=== PATIENT | female | born 1980 | race Caucasian/White ===

== ENCOUNTER → 2016-12-31 | Day surgery (SDC) | payer BC ==
[~2016-12-31] MED LIST: MTR600X PO; ONDA8TAB6 PO; OXYC-57 PO; PRENTAB26 PO; ZNTT/150 PO
--- NOTE | 2016-12-31 16:19 | Anesthesiology Progress Note ---
Anesthesia Progress Note Date of Service Dec 31, 2016. Progress Notes Pt seen in PAT for Exam and Advise: OB visit. Pt's EDC: 01/31/17. First . PMH significant for: scoliosis, hypothyroid (found during ; pt refusing to take Synthroid per OB notes), hyperemesis gravidarum (on Zofran) , GERD (on Zantac). Pt states has worn a back brace previously for scoliosis. No hx of surgical intervention. Pt here to discuss options for pain control with delivery. Options discussed including IV medications and epidural. Pt does have fairly significant scoliosis. D/w pt that epidural may be more difficult to place; possibly to use US guidance. Pt states she does have a print-out of spine imaging, but she is in the process of moving so she is unable to locate the image at this time. Advised her to bring if she is able to find.
== END | disposition home or self-care (01) ==
LOC: C.ACU 09:48
PROVIDERS: ATTEND Obstetrics & Gynecology
DX: M41.20 Other idiopathic scoliosis, site unspecified (principal)

== ENCOUNTER 2017-01-31 02:56 | Inpatient (IN) | payer BC ==
[~2017-01-31] VITALS: Ht 167.6 cm; Wt 64.5 kg
[2017-02-06] MEDS ORDERED: ZNTT/150 PO (07:38)
[2017-02-06] MEDS ORDERED: ONDA8TAB6 PO (07:38)
[2017-02-06] MEDS ORDERED: PRENTAB26 PO (07:38)
[2017-02-06 07:40] VITALS: Ht 167.6 cm; Wt 64.5 kg
[2017-02-06] MEDS ORDERED: DINOPROSTONE 10 MG INSERT PV ONE (08:30)
[2017-02-06 09:08] LABS: HEMATOCRIT 35.1 % (37-47); MEAN CELL VOLUME 86.9 fL (80-100); MEAN CORPUSCULAR HEMOGLOBIN 28.5 pg (25-34); MEAN CORPUSCULAR HGB CONC 32.8 g/dl (32-36); MEAN PLATELET VOLUME 9.3 fL (7.4-10.4); PLATELET COUNT 214 K/uL (130-400); RED BLOOD COUNT 4.04 M/uL (4.2-5.4); WHITE BLOOD COUNT 11.09 K/uL (4.8-10.8)
[2017-02-06] MEDS ORDERED: ACETAMINOPHEN 500 MG TAB PO STA (17:32)
--- NOTE | 2017-02-06 18:49 | HISTORY & PHYSICAL EXAMINATION ---
DATE OF ADMISSION: 02/06/2017 HISTORY OF PRESENT ILLNESS: The patient is a 36-year-old G1, P0, due date 02/01/2017, making her 40 weeks and 5 days today who is here for induction of labor for postdates. The patient's has been unremarkable. She was via IVF and was seen by maternal medicine because of advanced maternal age. On arrival to labor and delivery, she had no shortness of breath, no chills, no fever. heart rate is category 1. COURSE: Unremarkable. LABS: Blood type A positive, antibody negative, rubella immune, GBS negative, RPR nonreactive. PAST MEDICAL HISTORY: 1. History of migraines. 2. History of scoliosis. 3. History of hypothyroidism. PAST SURGICAL HISTORY: The patient has had laparoscopy. SOCIAL HISTORY: The patient is . Denies drug, tobacco or alcohol use. ALLERGIES: No known drug allergies. MEDICATIONS: The patient was on Zantac, vitamins and iron supplement. PHYSICAL EXAMINATION: GENERAL: Well-developed, well-nourished white female in no acute distress. HEART: S1, S2, regular rhythm and rate. LUNGS: Clear to auscultation bilaterally. ABDOMEN: Nontender, Gravid. Bedside ultrasound shows cephalic presentation. PELVIC: The patient was fingertip, 50% effaced and minus 3 on admission. EXTREMITIES: No cyanosis, clubbing or edema. ASSESSMENT AND PLAN: A 36-year-old G1, P0 at 40 weeks and 5 days, here for labor induction for postdates. The patient is admitted and will start induction of labor.
[2017-02-06] MEDS ORDERED: ONDANSETRON 8 MG TAB PO PRN (19:45)
[2017-02-06] MEDS ORDERED: BUTORPHANOL TARTRATE 1 MG/ML VIAL IV STA (22:41)
[2017-02-06] MEDS ORDERED: LACTATED RINGER'S 1000ML 500 ML IV PRN (23:50)
[2017-02-07] MEDS ORDERED: OXYTOCIN 30 UNITS/500ML NSS IV PRN
[2017-02-07] MEDS: LACTATED RINGER'S 1000ML 1,000 ML IV SCH ×3 (01:42→10:51)
[2017-02-07] MEDS ORDERED: EpHEDrine SULFATE INJ 50 MG/ML AMP ONE ×2 (01:53→20:36)
[2017-02-07] MEDS ORDERED: FENTANYL CITRATE INJ 50 MCG/1 ML 2 ML VIAL ONE ×3 (01:53→08:38)
[2017-02-07] MEDS ORDERED: BUPIVACAINE 0.25% 30 ML VIAL ONE ×2 (01:53→08:36)
[2017-02-07] MEDS ORDERED: FENTANYL 2MCG/ML ROPIV 1.25MG/ML 100ML BAG EPI ONE (01:54)
[2017-02-07] MEDS ORDERED: LACTATED RINGER'S 1000ML 500 ML IV PRN ×3 (03:28→21:30)
[2017-02-07] MEDS ORDERED: NALOXONE HCL INJ 1 MG in SODIUM CHLORIDE 0.9% 1000ML 1,000 ML IV PRN ×3 (03:28→21:30)
[2017-02-07] MEDS ORDERED: ONDANSETRON INJ 2 MG/ML 2 ML VIAL IV PRN (03:30)
[2017-02-07] MEDS ORDERED: FENTANYL 2MCG/ML ROPIV 1.25MG/ML 100ML BAG EPI PRN (03:30)
[2017-02-07] MEDS ORDERED: DiphenhydrAMINE HCL 50 MG/ML VIAL IV PRN ×3 (03:30→21:30)
[2017-02-07] MEDS ORDERED: NALOXONE HCL INJ 0.4 MG/1 ML VIAL/CARP IV PRN ×2 (03:30→09:45)
[2017-02-07] MEDS ORDERED: NALBUPHINE HCL INJ 10 MG/ML AMP IV PRN ×3 (03:30→21:30)
[2017-02-07] MEDS: EpHEDrine SULFATE INJ 50 MG/ML AMP IV PRN ×2 (09:14→09:21)
[2017-02-07] MEDS ORDERED: EpHEDrine SULFATE INJ 50 MG/ML AMP IV PRN ×2 (09:45→21:30)
[2017-02-07] MEDS: FENTANYL 2MCG/ML ROPIV 1.25MG/ML 100ML BAG EPI PRN ×3 (10:53→18:56)
[2017-02-07] MEDS ORDERED: D5W AND LACTATED RINGERS 1,000 ML IV SCH ×2 (11:15→21:24)
[2017-02-07] MEDS ORDERED: CEFAZOLIN IV 1,000 MG in DEXTROSE 5% 50ML 50 ML IV SCH (19:00)
[2017-02-07] MEDS ORDERED: LACTATED RINGER'S 1000ML 1,000 ML IV SCH (19:20)
[2017-02-07] MEDS ORDERED: CEFAZOLIN IV 2,000 MG in DEXTROSE 5% 50ML 50 ML IV ONE (19:28)
[2017-02-07] MEDS ORDERED: CITRIC ACID/SODIUM CITRATE 15 ML UDC PO ONE (19:30)
[2017-02-07 19:45] LABS: HEMATOCRIT 32.7 % (37-47); MEAN CELL VOLUME 85.8 fL (80-100); MEAN CORPUSCULAR HEMOGLOBIN 28.9 pg (25-34); MEAN CORPUSCULAR HGB CONC 33.6 g/dl (32-36); MEAN PLATELET VOLUME 9.5 fL (7.4-10.4); PLATELET COUNT 199 K/uL (130-400); RED BLOOD COUNT 3.81 M/uL (4.2-5.4); WHITE BLOOD COUNT 16.04 K/uL (4.8-10.8)
[2017-02-07] MEDS ORDERED: OXYTOCIN INJ 10 UNITS/ML VIAL ONE ×4 (20:00→20:50)
[2017-02-07] MEDS ORDERED: MoRPHine SULFATE PF 1 MG/ML 10 ML AMP/VIAL ONE (20:01)
[2017-02-07] MEDS ORDERED: ONDANSETRON INJ 2 MG/ML 2 ML VIAL ONE (20:01)
[2017-02-07] MEDS ORDERED: MIDAZOLAM HCL 1 MG/ML 2ML VIAL ONE (20:01)
[2017-02-07 20:51] LABS: COMPLETE YES; LYMPH ABS # 0.98 K/uL (1.2-3.4); LYMPHOCYTE % 6.1 %; META ABS # 0.14 K/uL (0-0); METAMYELOCYTE % 0.9 %; MYELOCYTE % 0.9 %; NEUTROPHILS % 83.4 %
[2017-02-07] MEDS ORDERED: NALOXONE HCL INJ 0.08 MG in SYRINGE 1.8 ML IV PRN (21:30)
[2017-02-07] MEDS ORDERED: MoRPHine SULFATE 2 MG/ML CARP IV PRN (21:30)
[2017-02-07] MEDS ORDERED: SENNA 8.6 MG TAB PO PRN (21:30)
[2017-02-07] MEDS ORDERED: KETOROLAC TROMETHAMINE 30 MG/ML VIAL IV. PRN (21:30)
[2017-02-07] MEDS ORDERED: MAGNESIUM HYDROXIDE SUSP 30 ML UDC PO PRN (21:30)
[2017-02-07] MEDS ORDERED: MEASLES, MUMPS & RUBELLA VIRUS VIAL SQ. ONE (21:30)
[2017-02-07] MEDS ORDERED: MoRPHine SULFATE PF 1 MG/ML 10 ML AMP/VIAL EPI PRN (21:30)
[2017-02-07] MEDS ORDERED: BENZOCAINE 20% AER SPR 82.5 GM CAN EXT PRN (21:30)
[2017-02-07] MEDS ORDERED: NO NARCOTICS OR SEDATIVES SCH (21:30)
[2017-02-07] MEDS ORDERED: SUPERCREAM 0.870 % 15GM JAR EXT PRN (21:30)
[2017-02-07] MEDS ORDERED: LANOLIN OINT EXT PRN ×2 (21:30)
[2017-02-07] MEDS ORDERED: HYDROCORTISONE ACETATE 25 MG SUPP PR PRN (21:30)
[2017-02-07] MEDS ORDERED: SODIUM CHLORIDE 0.9% 1000ML 1,000 ML IV PRN (21:30)
[2017-02-07] MEDS ORDERED: DIPHTHERIA/TETANUS/PERTUSSIS 0.5 ML SYR/VIAL IM. ONE (21:30)
[2017-02-07] MEDS ORDERED: NALOXONE HCL 0.4 MG/1 ML VIAL/CARP IV PRN (21:30)
--- NOTE | 2017-02-07 21:30 | Anesthesiology Progress Note ---
Anesthesia Post Op Note Date & Time Feb 07, 2017 at 21:30 Vital Signs Pain Intensity: 5.0 Notes Mental Status: alert / awake / arousable, participated in evaluation Pt Amnestic to Procedure: Yes Nausea / Vomiting: adequately controlled Pain: adequately controlled Airway Patency, RR, SpO2: stable & adequate BP & HR: stable & adequate Hydration State: stable & adequate Anesthetic Complications: no major complications apparent
--- NOTE | 2017-02-07 21:36 | [facility] Post Operative Brief Note ---
Immediate Operative Summary Operative Date Feb 07, 2017. Pre-Operative Diagnosis IUP; Brow Presentation; Failed induction Post-Operative Diagnosis Same Procedure(s) Performed Primary caesarean section Delivery of live female child at 2036 Lower uterine transverse incision, lysis of filmy adhesions and repair of bilateral broad ligaments Surgeon Dr. Almeida Director Inbound Sales Surgeon(s) Dr. Velasco Estimated Blood Loss 500cc Findings Baby 's neck hyperflexed, brow presentation, Apgars 9/9, female Fluids (cc crystalloids) 1000 ml lr Specimens Cord blood Placenta-exam Drains 400 cc urine Anesthesia Spinal Complication(s) None Disposition L&D
[2017-02-07] MEDS: OXYTOCIN INJ 20 UNITS in D5W AND LACTATED RINGERS 1,000 ML IV SCH (22:54)
[2017-02-08] VITALS (15 sets, daily range): BP systolic 94–118; BP diastolic 43–73; PULSE 79–98; TEMP 36.6–37.6; O2SAT 93–99
[2017-02-08] MEDS: ONDANSETRON INJ 2 MG/ML 2 ML VIAL IV PRN ×2 (00:54→07:20)
[2017-02-08 04:09] LABS: URINE APPEARANCE CLEAR (CLEAR); URINE COLOR DK YELLOW; URINE NITRITE NEG (NEG); URINE PH 5.5 (4.5-7.5); URINE SPECIFIC GRAVITY 1.015 (1.000-1.030); UROBILINOGEN POS (NEG); ZZURINE CULT IF INDIC CATH YES
[2017-02-08 04:20] LABS: MANUAL MICROSCOPIC REQUIRED? NO; REVIEW REQ? NO; URINE BILIRUBIN NEG (NEG)
--- NOTE | 2017-02-08 04:37 | OPERATIVE REPORT ---
DATE OF OPERATION: 02/07/2017 PREOPERATIVE DIAGNOSIS: The patient is a 36-year-old G1, P0 at 40 weeks and 6 days of gestation, failed induction of labor, persistent brow presentation, arrest of dilatation and prolonged spontaneous rupture of membranes. POSTOPERATIVE DIAGNOSIS: Same. PROCEDURE: Primary low transverse with Pfannenstiel skin incision, lysis of filmy adhesions and repair of broad ligament. SURGEON: Dr. Mckeon. DOCTOR OF NURSE ANESTHESIA: Dr. Velasco. ESTIMATED BLOOD LOSS: 500. FLUIDS: 1000 mL of lactated Ringer's with Pitocin. DRAINS: Gamble drained 400 mL of urine. ANESTHESIA: Spinal, Dr. Laws. COMPLICATIONS: None. FINDINGS: Baby was in cephalic presentation with brow presentation, neck hyperextension. A viable female , delivered at 2037 p.m. Apgars 9/9. Weight is 3470 grams, which is 7 pound 10 ounces. MATERNAL FINDINGS: There were filmy adhesions around the anterior surface/ serosa of the uterus, and there were open windows on the broad ligaments on both sides. There were adhesions between the ovary/ fallopian tubes and the posterior uterine serosa. The patient has a history of endometriosis surgery Otherwise normal uterus, fallopian tubes and ovaries. DESCRIPTION OF PROCEDURE: The patient was taken to the operating room where spinal anesthesia was given without difficulty. She was placed in dorsal supine position with a leftward tilt. She was prepared and draped in the usual sterile fashion and a Pfannenstiel skin incision was made with a scalpel and carried through to the underlying layer of fascia with a second scalpel. Fascia was incised in the midline, incision extended laterally with the help of Swain scissors. Lower aspect of the fascial incision was then grasped with 2 Giacomo clamps, elevated. Underlying rectus muscles were dissected off sharply with Swain scissors and upper aspect of the fascial incision was grasped with 2 Giacomo clamps, elevated. Underlying rectus muscles were dissected off bluntly and sharply with Swain scissors. Rectus muscles were in the midline, parietal peritoneum was entered bluntly with the fingers and the peritoneal incision was extended superiorly and inferiorly with good visualization of the bladder. Bladder blade was inserted. Vesicouterine peritoneum was identified, grasped with pickups, entered sharply with Metzenbaum scissors and a bladder flap was created digitally and the bladder blade was reinserted, retracting the bladder down. The lower uterine segment was incised in a transverse fashion. Incision was extended laterally with the help of fingers and clear amniotic fluid was obtained and the baby's head was found to be in hyperextension position with a brow presentation and there was a nuchal cord around the neck x1. The head was brought to the incision without difficulty and delivered and the cord was reduced while delivering the shoulders. Baby was actively crying and moving. Mouth and nose were suctioned. Cord was clamped x2 and cut and baby was handed off to the awaiting service tech, Dr. Carey. Then, cord blood was obtained. Placenta was delivered manually as intact and complete and the filmy adhesions around the serosa of the uterus were reduced and uterus was exteriorized, cleared of all clots and debris. Uterine incision was repaired with 0 Vicryl in a running locked fashion and a second imbricating layer was placed with 0 Vicryl in a running locked fashion. The lower segment was thinned and there were small holes close to the left quadrant as well as in the midline. Those were repaired with 2-0 Vicryl with [id number] stitches x2 on both sides and excellent hemostasis was achieved. The rest of the uterine muscles and segments were intact and then there were noted to be open windows around both sides of broad ligament, between the round ligament and the uterus. Those were repaired with 2-0 Vicryl in a running fashion, bringing the broad ligament edges together to the uterine serosa and the vesicouterine peritoneum was also reapproximated with the same suture, 2-0 Vicryl, in a running fashion. Excellent hemostasis was achieved. The posterior uterus was visualized, fallopian tubes and ovaries had filmy adhesions on the posterior uterine serosa; otherwise, normal looking ovaries and tubes and the posterior cul-de-sac was irrigated with warm normal saline and suctioned. The uterus was returned to the abdomen, pelvis was irrigated with warm normal saline and suctioned and excellent hemostasis was achieved. Parietal peritoneum was brought together with 3-0 Vicryl in a running fashion. The same suture was used to reapproximate the rectus muscles in a running fashion and the rectus fascia was reapproximated with 0 Vicryl in a running fashion, starting from two corners and meeting in the midline and the subcuticular fat tissue was reapproximated with 3-0 Vicryl in a running fashion. Skin was closed with 4-0 Monocryl in a subcuticular fashion and covered with Steri-Strips. The patient tolerated the procedure well. Sponge, lap and needle counts were correct x3. She was given 2 grams of cefazolin before surgery. She was taken to recovery room in a stable condition. I attest to the content of the Intraoperative Record and any orders documented therein. Any exceptions are noted below. SALOMON
[2017-02-08] MEDS ORDERED: NURSING VERBAL MED ORDER ONE (05:30)
[2017-02-08 06:54] LABS: BASO % 0.1 %; BASO ABS # 0.01 K/uL (0-0.2); COMPLETE YES; EOS % 0.1 %; HEMATOCRIT 34.3 % (37-47); IG% 0.9 %; LYMPH % 6.5 %; LYMPH ABS # 1.03 K/uL (1.2-3.4); MEAN CELL VOLUME 86.2 fL (80-100); MEAN CORPUSCULAR HEMOGLOBIN 28.4 pg (25-34); MEAN CORPUSCULAR HGB CONC 32.9 g/dl (32-36); MEAN PLATELET VOLUME 9.5 fL (7.4-10.4); MONO % 11.2 %; NEUT % 81.2 %; PLATELET COUNT 221 K/uL (130-400); RED BLOOD COUNT 3.98 M/uL (4.2-5.4); WHITE BLOOD COUNT 15.84 K/uL (4.8-10.8)
[2017-02-08] MEDS: OXYTOCIN INJ 20 UNITS in D5W AND LACTATED RINGERS 1,000 ML IV SCH (07:21)
--- NOTE | 2017-02-08 07:28 | OB/GYN Progress Note ---
AUTOMOTIVE SERVICE TECHNICIAN Progress Note Date of Service: Feb 08, 2017. Patient is seen and examined. She feels well, no complaints. Very happy Pain is under control with meds. Not OOB yet Vomitedx2 Bleeding is minimal No fever/ chills/ CP/ SOB/ N&V/ Leg pain Breast feeding without problems Date Time Temp Pulse Resp B/P Pulse Ox O2 Delivery O2 Flow Rate FiO2 02/08/17 04:30 16 98 02/08/17 03:30 18 99 02/08/17 03:15 36.9 80 18 96/43 98 Room Air 02/08/17 02:30 18 97 02/08/17 01:25 16 93 02/08/17 00:30 18 97 02/08/17 00:30 37.0 88 18 118/73 97 Room Air 02/08/17 00:30 98 Room Air 8-Hour Column 02/07/17 02/08/17 02/08/17 16:00 00:00 08:00 Intake Total 806 ml Output Total 550 ml Balance 256 ml 24-Hour Column 02/08/17 08:00 Intake Total 806 ml Output Total 550 ml Balance 256 ml UOP 350 ml Last 24 Hours Test 02/07/17 19:38 02/08/17 03:50 02/08/17 06:23 White Blood Count 16.04 K/uL 15.84 K/uL Red Blood Count 3.81 M/uL 3.98 M/uL Hemoglobin 11.0 g/dL 11.3 g/dL Hematocrit 32.7 % 34.3 % Mean Corpuscular Volume 85.8 fL 86.2 fL Mean Corpuscular Hemoglobin 28.9 pg 28.4 pg Mean Corpuscular Hemoglobin Concent 33.6 g/dl 32.9 g/dl Platelet Count 199 K/uL 221 K/uL Mean Platelet Volume 9.5 fL 9.5 fL RDW Standard Deviation 59.8 fL 61.2 fL RDW Coefficient of Variation 19.4 % 19.5 % Neutrophils % (Manual) 83.4 % Lymphocytes % (Manual) 6.1 % Monocytes % (Manual) 8.7 % Metamyelocytes % 0.9 % Myelocytes % 0.9 % Neutrophils # (Manual) 13.38 K/uL Total Absolute Neutrophils 13.38 K/uL Lymphocytes # (Manual) 0.98 K/uL Total Absolute Lymphocytes 0.98 K/uL Monocytes # (Manual) 1.40 K/uL Metamyelocytes # 0.14 K/uL Myelocytes # 0.14 K/uL Red Blood Cell Morphology Unremarkable Urine Color DK YELLOW Urine Appearance CLEAR Urine pH 5.5 Urine Specific Grady 1.015 Urine Protein TRACE Urine Glucose (UA) 2+ Urine Ketones 1+ Urine Occult Blood 3+ Urine Nitrite NEG Urine Bilirubin NEG Urine Urobilinogen POS Urine Leukocyte Esterase SMALL Urine WBC (Auto) 10-30 /hpf Urine RBC (Auto) >30 /hpf Urine Hyaline Casts (Auto) 10-30 /lpf Urine Epithelial Cells (Auto) 10-20 /lpf Urine Bacteria (Auto) NEG Neutrophils (%) (Auto) 81.2 % Lymphocytes (%) (Auto) 6.5 % Monocytes (%) (Auto) 11.2 % Eosinophils (%) (Auto) 0.1 % Basophils (%) (Auto) 0.1 % Neutrophils # (Auto) 12.86 K/uL Lymphocytes # (Auto) 1.03 K/uL Monocytes # (Auto) 1.78 K/uL Eosinophils # (Auto) 0.01 K/uL Basophils # (Auto) 0.01 K/uL Immature Granulocyte % (Auto) 0.9 % Immature Granulocyte # (Auto) 0.15 K/uL PE: General: Alert, orientedx3, NAD CVS: S1S2 RRR Lungs; CTAB Abd: soft, NT, fundus firm, below Umbilicus Dressing: Clean, dry, intact Perineum intact, Lochia rubra minimal Ext; NT, no edema, SCD's on Gamble: concentrated urine, clearing up from blood tinged AP: 36 yo s/p C Section, pod# 1 VSS Afebrile doing well Continue routine postop care Gamble IVF bolus All questions were answered
[2017-02-08] MEDS ORDERED: LACTATED RINGER'S 1000ML 1,000 ML IV SCH (07:30)
[2017-02-08] MEDS: PRENATAL VITAMIN TAB PO SCH (08:00)
[2017-02-08] MEDS: FERROUS SULFATE 325 MG TAB PO SCH (08:00)
[2017-02-08] MEDS: DOCUSATE SODIUM 100 MG CAP PO SCH ×2 (08:52→21:01)
[2017-02-08] MEDS: SIMETHICONE 80 MG CHEW PO SCH ×4 (08:52→21:01)
[2017-02-08] MEDS ORDERED: DiphenhydrAMINE HCL 50 MG/ML VIAL IV PRN (10:00)
[2017-02-08] MEDS ORDERED: OXYCODONE/ACETAMINOPHEN 5-325 TAB PO PRN (10:00)
[2017-02-08] MEDS ORDERED: DC INTRASPINAL MORPHINE ONE (10:00)
[2017-02-08] MEDS ORDERED: MEPERIDINE HCL 75 MG/ML CARP IV PRN (10:00)
[2017-02-08] MEDS ORDERED: MEPERIDINE HCL 50 MG/ML CARP IV PRN (10:00)
[2017-02-08] MEDS ORDERED: ONDANSETRON INJ 2 MG/ML 2 ML VIAL IV PRN (10:00)
[2017-02-08] MEDS ORDERED: KETOROLAC TROMETHAMINE 30 MG/ML VIAL IV. PRN (10:00)
[2017-02-08] MEDS ORDERED: PROMETHAZINE HCL INJ 25 MG in SODIUM CHLORIDE 0.9% 50ML 50 ML IV PRN (10:00)
[2017-02-08] MEDS: IBUPROFEN 600 MG TAB PO PRN ×2 (17:59→22:27)
[2017-02-08] MEDS ORDERED: BISACODYL 5 MG TABEC PO ONE (22:00)
[2017-02-09] MEDS: IBUPROFEN 600 MG TAB PO PRN ×4 (06:07→23:18)
[2017-02-09 07:40] LABS: HEMATOCRIT 33.1 % (37-47)
[2017-02-09 08:15] VITALS: BP 104/69; PULSE 83; TEMP 37.3; O2SAT 96
[2017-02-09] MEDS: SIMETHICONE 80 MG CHEW PO SCH ×4 (08:19→19:26)
[2017-02-09] MEDS: PRENATAL VITAMIN TAB PO SCH (08:20)
[2017-02-09] MEDS: FERROUS SULFATE 325 MG TAB PO SCH (08:20)
[2017-02-09] MEDS: DOCUSATE SODIUM 100 MG CAP PO SCH ×2 (08:20→19:26)
[2017-02-09] MEDS: OXYCODONE/ACETAMINOPHEN 5-325 TAB PO PRN ×3 (08:53→17:46)
--- NOTE | 2017-02-09 09:47 | Surgery Progress Note ---
Surgery Progress Note Date of Service Feb 09, 2017. Subjective Post OP Day: 2 + ambulating, + bowel movement, + diet (Tolerating PO food and meds), + feeling well, + flatus, + pain controlled, No SOB, No chest pain, No complaints, No nausea, No using ENTERPRISE APPLICATION ARCHITECT, No vomiting Objective Vital Signs: Date Time Temp Pulse Resp B/P Pulse Ox O2 Delivery O2 Flow Rate FiO2 02/08/17 23:25 Room Air 02/08/17 23:25 37.6 84 18 105/68 Room Air 02/08/17 19:00 37.3 98 20 94/59 Room Air 02/08/17 15:30 36.9 85 20 107/67 Room Air 02/08/17 15:30 Room Air 02/08/17 12:40 36.6 93 16 99/58 99 Room Air General Appearance: WD/WN, no apparent distress Head: normocephalic, atraumatic Neck: supple, no adenopathy, thyroid normal, no JVD Respiratory/Chest: chest non-tender, lungs clear, normal breath sounds, no respiratory distress, no accessory muscle use Cardiovascular: regular rate, rhythm, no edema, no gallop, no JVD, no murmur Abdomen: normal bowel sounds, non tender, non distended, soft, no organomegaly , no pulsatile mass Incision(s): clean, dry, intact, no erythema, no drainage Extremities: normal range of motion, non-tender, normal inspection, no pedal edema, no calf tenderness, normal capillary refill, pelvis stable Laboratory Results: Results Past 24 Hours Test 02/09/17 07:13 Range/Units Hemoglobin 10.7 12.0-16.0 g/dL Hematocrit 33.1 37-47 % Assessment & Plan regular diet C/SEC day #2 pt doind well anticipate disch tomorrow
[2017-02-09 12:18] VITALS: BP 98/63; PULSE 83; TEMP 36.3; O2SAT 96
[2017-02-09 15:15] VITALS: BP 108/69; PULSE 80; TEMP 37; O2SAT 97
[2017-02-09] MEDS ORDERED: BISACODYL 10 MG SUPP PR PRN (21:30)
[2017-02-09 23:15] VITALS: BP 113/64; PULSE 79; TEMP 36.4
[2017-02-10 07:45] VITALS: BP 117/68; PULSE 74; TEMP 36.9; O2SAT 99
[2017-02-10] MEDS ORDERED: MTR600X PO (07:48)
[2017-02-10] MEDS ORDERED: OXYC-57 PO (07:48)
--- NOTE | 2017-02-10 07:50 | Discharge Instructions ---
Discharge Instructions Date of Service Feb 10, 2017. Admission Reason for Admission: Induction Discharge Discharge Diagnosis / Problem: Primary Section Discharge Goals Goal(s): Routine recovery after Medications Continue Dispensed Medications: supercream, dermaplast, tucks, lansinoh Activity Recommendations Activity Limitations: per Instructions/Follow-up section . Instructions / Follow-Up Instructions / Follow-Up ACTIVITY RECOMMENDATIONS: * Gradual return to full activity over the next 2-3 weeks. * No lifting - nothing heavier than baby over the next 2-3 weeks. * Do not engage in vigorous exercise, sexual activity or sports until cleared by your physician. * Do not drive or operate any motorized equipment until cleared by your physician. * You may shower/bathe daily. BREAST CARE: If you are not breast feeding: * Wear a supportive bra 24 hours a day for one to two weeks. * Avoid stimulating your breasts and nipples as much as possible during the first few weeks after delivery. * When taking a shower, have the warm water hit your back, not breasts. * When your breasts feel full, apply ice packs. Usually three to four times a day helps ease the discomfort. * Take a mild pain medication (Tylenol/Motrin) when you are uncomfortable. If breast feeding: * Use breast milk to lubricate nipples. Lansinoh cream may be used for sore nipples. You do not need to remove cream prior to breast feeding. If using a different brand of cream, check the label for directions regarding removal of cream prior to nursing. * Wear a supportive bra. * If having problems with breasts or breast feeding, call a disaster recovery consultant or your health care provider. OVER THE COUNTER MEDICATION: * For discomfort or pain, you may use Acetaminophen (Tylenol), Ibuprofen (Advil ), or Naproxen (Aleve) following the package directions. * For constipation you may use Colace following the package directions. SPECIAL CARE INSTRUCTIONS: When you are discharged from the hospital, it is important for you to follow the instructions listed below: * During the first week at home, you should be able to care for yourself and your baby. In addition, the usual light household activities are encouraged. * Limit your activities to the way you feel. Do not try to clean the house or move furniture. Be sensible. * If you actively engage in sports and have done so up until the time of your delivery, you may resume these activities as soon as you feel able. This may take up to one month or even longer. Use good judgment. * Continue to take your vitamins for at least six weeks after the of your baby. * Your diet need not be limited unless you were on a special diet before your delivery. Breast-feeding mothers need around 2500 calories per day and at least 64-80 ounces of fluid per day (8 to 10 glasses). * You should eat foods from the four major food groups. Crash diets or fad diets are to be avoided. Eating lean meats, fresh fruits and vegetables, low-fat dairy products, high fiber foods and a regular exercise program, will help you get back to your pre- weight without putting your health at risk. * Constipation is sometimes a problem after delivery. Take a mild laxative as needed. If breast feeding, Milk of Magnesia is acceptable to use. You may use a suppository or Fleets enema if no episiotomy. * A daily shower or tub bath is suggested. Be sure to thoroughly and gently dry the perineum. * A bloody vaginal discharge will usually continue until around four weeks post . A small amount of bleeding may continue for as long as six weeks. Vaginal discharge changes from the bright red bleeding after delivery to pink then brownish and finally yellowish-pink before becoming white and disappearing. * Bleeding may increase with activity. Your first period may come in 4-8 weeks. If you are breast feeding, your period may be delayed even longer. * Blunt (sex) can begin whenever both you and your partner feel comfortable and do not have any form of genital infection. It is recommended that you wait at least six weeks for internal and external healing to occur. If you have questions, please talk to your health care practitioner. A condom should be used to prevent infection and . * Foreplay, gentle intercourse and lubrication is very important the first several times to prevent pain. A water-based lubricant such as K-Y jelly or Astroglide may be used. * Tampons and/or Douching should be avoided until after six weeks check-up. * If you have RH negative blood and your baby is RH positive, you will receive RHOGAM by injection prior to discharge. The nurse will give you a card to keep with you that has the date and place that you received RHOGAM after delivery. * During your care, you had a Rubella screen done to check for the presence of rubella antibodies in your blood. If your test was negative, you will receive a Rubella vaccine prior to discharge. This vaccine may cause a fever, soreness at the injection site and flu-like symptoms. If these symptoms persist, notify your health care practitioner. is not advised for three months after a Rubella vaccine. * Verbalizes understanding of car seat law as reviewed with patient nursing. * Car Seat hand-out given and reviewed with patient by nursing. * Shaken baby information reviewed with patient by nursing. Call you doctor if: * Heavy bleeding (saturating several pads an hour) or passing clots the size of your fist. * A fever >101 degrees F (38.3 degrees C) on two occasions four hours apart and /or chills. * Unusual pain in the pelvic or vaginal areas. Pain should improve each day . * Call the doctor for any increased redness, drainage or swelling around the incision and any pain unrelieved by prescribed pain medication. * Any signs or symptoms of phlebitis (possible blood clots forming in the veins ): leg pain, warm, red or swollen area on leg. * "Baby Blues" lasting longer than two weeks. If you have any questions or concerns, call your health care practitioner at . FOLLOW-UP VISIT: * Incision check (staple removal) in 1 week. Please call doctor's office at to set up appointment. * Please call the office at to schedule a 6 week examination. It is important you keep this appointment. * It is important for you to make arrangements for either yearly or twice yearly check-ups thereafter. Current Hospital Diet Patient's current hospital diet: Regular OB Diet Discharge Diet Recommended Diet: Regular OB Diet Procedures Procedures Performed: Primary caesarean section Delivery of live female child at 2036 Lower uterine transverse incision, lysis of filmy adhesions and repair of bilateral broad ligaments Pending Studies Studies pending at discharge: no Medical Emergencies . Who to Call and When: Medical Emergencies: If at any time you feel your situation is an emergency, please call 911 immediately. . Non-Emergent Contact Non-Emergency issues call your: Primary Care Provider, [employer] Handler . . "Provider Documentation" section prepared by Leno Sagastume. VTE Core Measure Inpt VTE Proph given/why not?: Treatment not indicated
--- NOTE | 2017-02-10 07:51 | OB/GYN Progress Note ---
TOOL AND DIE SUPERVISOR Progress Note Date of Service Feb 10, 2017. Subjective conversation w/ patient, physical exam Ambulation: ambulating normally Voiding: no voiding problems Passing Gas: Yes Diet Tolerance: Regular Diet Lochia: Small Pain: 2/10 Notes: Doing well, no concerns. Would like to go home today. Objective Vital Signs Date Time Temp Pulse Resp B/P Pulse Ox O2 Delivery O2 Flow Rate FiO2 02/10/17 07:45 36.9 74 20 117/68 99 Room Air 02/09/17 23:15 36.4 79 18 113/64 Room Air 02/09/17 23:15 Room Air 02/09/17 15:15 97 Room Air 02/09/17 15:15 37.0 80 18 108/69 97 Room Air 02/09/17 12:18 36.3 83 98/63 96 Room Air 02/09/17 08:15 37.3 83 18 104/69 96 Room Air 02/09/17 08:15 96 Room Air Physical Exam General Appearance: WELL-APPEARING Respiratory/Chest: chest non-tender, lungs clear Cardiovascular: regular rate, rhythm, no edema Abdomen: normal bowel sounds, soft Fundus: Firm Incision Description: Clean, Dry & Intact Extremities: normal range of motion, non-tender, no calf tenderness Assessment and Plan Post-Op Day Number: 3 Continue Routine Care: -D/C home today -F/U in 1 week for incision check.
[2017-02-10] MEDS: DOCUSATE SODIUM 100 MG CAP PO SCH (08:17)
[2017-02-10] MEDS: FERROUS SULFATE 325 MG TAB PO SCH (08:17)
[2017-02-10] MEDS: PRENATAL VITAMIN TAB PO SCH (08:18)
[2017-02-10] MEDS: SIMETHICONE 80 MG CHEW PO SCH (08:18)
[2017-02-10] MEDS: OXYCODONE/ACETAMINOPHEN 5-325 TAB PO PRN ×2 (08:21→10:22)
[2017-02-10] MEDS: IBUPROFEN 600 MG TAB PO PRN (08:23)
[2017-02-10 08:33] VITALS: O2SAT 99
[2017-02-10 09:39] VITALS: BP_DIAS 68; PULSE 74; TEMP 36.9
--- NOTE | 2017-02-20 07:10 | DISCHARGE SUMMARY ---
DETAILS OF ADMISSION: The patient is a 36-year-old G1, P0, at 40 weeks and 5 days of gestation, who was scheduled for induction of labor for postdates. On 02/06/2017, she was admitted. She received cervical ripening and then Pitocin. The baby was found to be in brow presentation at 2 cm dilatation. It was confirmed with bed side US where hyperextension of head was noted. She was expectantly managed to give her and baby chance for spontaneous flexion of head. The cervical dilatation has not progressed and the head stayed the same with persistent Brow presentation. The decision was made after discussion with the mother in details to proceed with primary . See dictated QS notes and operative note for details. She had primary low transverse on 02/07/2017 and delivered a viable female infant, Apgars 9 and 9. See dictated operative note for details. In the postop period, the patient did well. Pain was under control with medications. Vital signs stable, afebrile. Urine output was adequate. Her H\T\H was 11.3/34.4. Her physical exam was unremarkable. Her abdomen was soft, nontender. Fundus firm below the umbilicus. Incision clean, dry and intact. Bleeding was minimal. The patient was continuously monitored, and on postop day #2, the patient did well, ambulating, tolerating a regular diet, passing gas. She moved her bowels. Vital signs stable, afebrile. Physical exam was unremarkable. Incision was clean, dry and intact. Bleeding was minimal. Repeat H\T\H was 10.7/33.1. On postop day #3, the patient was doing well, no complaints. Pain was under control with medications. Physical exam was normal. The incision was clean, dry and intact. Bleeding was minimal. She desired to be discharged on 02/10/2017. The patient was discharged by Dr. Sagastume. Discharge instructions were given, when to call. Prescriptions were written for pain. She is to be seen in the office for incision check in a week. All questions were answered. SALOMON
== END 2017-02-10 11:30 | disposition home or self-care (01) | DRG 766 ==
LOC: C.LD 02-06 07:00 → C.OBG 02-07 23:44
PROVIDERS: ADMIT Obstetrics & Gynecology; ATTEND Obstetrics & Gynecology
PROC: 0UN90ZZ Release Uterus, Open Approach (ICD-10-PCS; principal; 2017-02-07 19:35)
PROC: 10D00Z1 Extraction of Products of Conception, Low, Open Approach (ICD-10-PCS; principal; 2017-02-07 19:35)
DX: O48.0 Post-term pregnancy (principal); Z3A.40 40 weeks gestation of pregnancy; Z37.0 Single live birth; O61.0 Failed medical induction of labor; O32.3XX0 Maternal care for face, brow and chin presentation, not applicable or unspecified; O99.613 Diseases of the digestive system complicating pregnancy, third trimester; K66.0 Peritoneal adhesions (postprocedural) (postinfection)

== ENCOUNTER → 2018-01-04 | Outpatient (CLI) | payer BC ==
[~2018-01-04] MED LIST changes: +RANI150T85 PO; -ZNTT/150 PO
== END ==
LOC: C.LAB 11:39
PROVIDERS: ATTEND Obstetrics & Gynecology Reproductive Endocrinology
DX: Z31.41 Encounter for fertility testing (principal)

== ENCOUNTER → 2018-01-27 | Outpatient (CLI) | payer BC ==
[~2018-01-27] MED LIST changes: +ONDA-170 PO; -ONDA8TAB6 PO
[2018-01-27 12:54] LABS: FOLLICLE STIMULAT HORMONE 3.61 IU/L; LUTEINIZING HORMONE 3.61 IU/L
== END | disposition home or self-care (01) ==
LOC: C.LAB 09:59
PROVIDERS: ATTEND Obstetrics & Gynecology Reproductive Endocrinology
DX: N97.9 Female infertility, unspecified (principal)

== ENCOUNTER → 2018-02-11 | Outpatient (CLI) | payer BC ==
--- NOTE | 2018-03-12 09:21 | CODING QUERY NO DIAGNOSIS ---
TREATMENT RENDERED WITHOUT A DIAGNOSIS To promote full compliance with coding requirements relating to patient care, physician participation is requested in all cases of configuration technician uncertainty. Please assist us with providing a diagnosis/symptom for the test(s) below: A diagnosis/symptom was not documented on your Order. A valid diagnosis/symptom is required to bill all insurances. Please remember that we are unable to code a diagnosis of rule out, probable, possible, questionable, or suspected. Tests that require a diagnosis: DOS: 02/11/18 * ESTRADIOL, ENAHNCED DIAGNOSIS: Provider Signature: Date: Thank you Tiffani Castañeda [employer] Once completed, please kindly fax back to [phone] For questions please call [phone]
== END | disposition home or self-care (01) ==
LOC: C.LAB 11:28
PROVIDERS: ATTEND Obstetrics & Gynecology Reproductive Endocrinology
DX: N97.8 Female infertility of other origin (principal)

== ENCOUNTER → 2018-02-18 | Outpatient (CLI) | payer BC | END | disposition home or self-care (01) | LOC: C.LAB 12:32 | PROVIDERS: ATTEND Obstetrics & Gynecology Reproductive Endocrinology | DX: N97.9 Female infertility, unspecified (principal) ==

== ENCOUNTER → 2018-03-10 | Outpatient (CLI) | payer BC | END | disposition home or self-care (01) | LOC: C.LAB 11:13 | PROVIDERS: ATTEND Obstetrics & Gynecology Reproductive Endocrinology | DX: Z32.00 Encounter for pregnancy test, result unknown (principal); E03.9 Hypothyroidism, unspecified ==